=== PATIENT | female | born 1935 | race Caucasian/White ===

== ENCOUNTER 2022-10-12 21:01 | Inpatient (IN) | payer MEDICARE, MEDICAID ==
[~2022-10-12] VITALS: Ht 160 cm; Wt 54.5 kg
--- NOTE | 2022-10-12 21:03 | NUR ---
PT INTUBATED FOR RESP DISTRESS AT [address] GARCIA, ETT 7.5 @23 LIP, PLACEMENT CONFIRMED VIA CO2 COLOR CHANGE AND CXR. OG PLACED AND OUT 50ML OF YELLOWISH FLUID PLACEMENT CONFIRMED VIA CXR. PT REMIANS A FULL CODE.
[2022-10-12] MEDS ORDERED: FENTANYL-0.9 % NACL/PF 100 ML IV PRN ×2 (21:05→21:28)
[2022-10-12 21:18] VITALS: BP 142/77
[2022-10-12] MEDS ORDERED: midazolam 100mg in NS 100ml 100 ML IV PRN (21:26)
[2022-10-12 21:48] LABS: BASOPHILS # (AUTO) 0.1 X10'3 (0-0.2); BASOPHILS % (AUTO) 0.7 % (0-1); EOSINOPHILS % (AUTO) 0.2 % (0-6); HEMATOCRIT 32.1 % (35.0-45.0); HEMOGLOBIN 9.9 g/dl (12.0-16.0); LYMPHOCYTES # (AUTO) 1.5 X10'3 (1.1-4.8); LYMPHOCYTES % (AUTO) 9.5 % (21-51); MEAN CORPUSCULAR HEMOGLOBIN 27.6 PG (27.0-31.0); MEAN CORPUSCULAR HGB CONC 30.7 g/dL (33.0-36.5); MEAN CORPUSCULAR VOLUME 89.8 FL (78-98); MEAN PLATELET VOLUME 7.1 FL (7.4-10.4); MONOCYTES # (AUTO) 0.9 X10'3 (0-0.9); MONOCYTES % (AUTO) 5.6 % (2-12); NEUTROPHILS # (AUTO) 13.7 X10'3 (1.8-7.7); PLATELET COUNT 544 X10'3 (140-440); RED BLOOD COUNT 3.58 X10'6 (4.20-5.60); RED CELL DISTRIBUTION WIDTH 16.8 % (11.5-14.5); WHITE BLOOD COUNT 16.3 X10'3 (4.5-11.0)
[2022-10-12] MEDS ORDERED: midazolam 100mg in NS 100ml 100 ML IV ONE (21:50)
[2022-10-12] MEDS ORDERED: fentaNYL 50mcg/ml PF inj. 2,500 MCG in normal saline 250ml IV soln 200 ML IV ONE (21:50)
[2022-10-12 21:57] LABS: ABG BASE EXCESS 4.3 mmol/L (-2.0-2.0); ABG HCO3 29.8 mmol/L (22.0-26.0); ABG PCO2 (T) 46.9 mmHg (32.0-45.0); ABG PO2 (T) 66.8 mmHg (75.0-100.0); FCOHb 0.9 % (0.0-3.9); FMetHb 0.3 % (0.0-1.5); FO2Hb 92.9 % (94-97); PATIENT TEMPERATURE 35.8; PEEP 5 cm H2O; RESPIRATORY RATE 24 b/min; TIDAL VOLUME 325 mL; TOTAL HEMOGLOBIN 10.1 G/dl (12.0-16.0)
[2022-10-12 21:58] LABS: APTT 28 SECONDS (22-32)
[2022-10-12] MEDS ORDERED: CefTRIAXone/D5W-Rocephin 1gm 50 ML IV ONE (22:00)
[2022-10-12 22:09] LABS: ALANINE AMINOTRANSFERASE 30 U/L (12-78); ALBUMIN 2.5 G/DL (3.4-5.0); ALBUMIN/GLOBULIN RATIO 0.9 (1.1-1.5); ALKALINE PHOSPHATASE 62 IU/L (46-116); ANION GAP 5 (8-16); ASPARTATE AMINO TRANSFERASE 22 U/L (10-37); BILIRUBIN,TOTAL 0.3 MG/DL (0.1-1.0); BLOOD UREA NITROGEN 34 MG/DL (7-18); BUN/CREATININE RATIO 44.7 (6.6-38.0); CALCIUM 8.2 MG/DL (8.5-10.1); CHLORIDE 103 MMOL/L (99-107); CREATININE 0.76 MG/DL (0.40-0.90); GLUCOSE 150 MG/DL (70-104); LIPASE < 50 U/L (73-393); MAGNESIUM 1.4 MG/DL (1.5-2.4); POTASSIUM 4.6 MMOL/L (3.5-5.1); SODIUM 142 MMOL/L (135-145); TOTAL CARBON DIOXIDE 34.4 MMOL/L (24-32); TOTAL PROTEIN 5.2 G/DL (6.4-8.2); eGFR 72 ML/MIN
[2022-10-12] MEDS ORDERED: magnesium Cl slow-release 64mg tablet PO PRN (22:25)
[2022-10-12] MEDS ORDERED: potassium Cl 20 mEq SR tablet PO PRN ×2 (22:25)
[2022-10-12] MEDS ORDERED: sodium phosphate inj. 15 MMOL in dextrose 5%-water 250 ML IV PRN (22:25)
[2022-10-12] MEDS ORDERED: propofol 1000mg/100ml bottle 100 ML IV SCH (22:25)
[2022-10-12] MEDS ORDERED: ipratropium/albuterol 3ml nebule NEB PRN (22:25)
[2022-10-12] MEDS ORDERED: morphine 2 MG/ML inj. syringe IV PRN (22:25)
[2022-10-12] MEDS ORDERED: magnesium 4gm in 100ml NS 100 ML IV PRN (22:25)
[2022-10-12] MEDS ORDERED: sodium phosphate inj. 30 MMOL in dextrose 5%-water 250 ML IV PRN (22:25)
[2022-10-12] MEDS ORDERED: furosemide inj 1,000 MG in normal saline 250ml IV soln 150 ML IV SCH (22:25)
[2022-10-12] MEDS ORDERED: Neutra Phos packet PO PRN (22:25)
[2022-10-12] MEDS ORDERED: LIDOcaine 2% 10ml TOPICAL JELLY (Urojet) TP ONE (22:25)
[2022-10-12] MEDS ORDERED: magnesium 2GM in 50ml NS 50 ML IV PRN (22:25)
[2022-10-12] MEDS ORDERED: ondansetron/PF 4mg/2ml inj IV PRN (22:25)
[2022-10-12] MEDS ORDERED: acetaminophen 650mg rectal suppository RC PRN (22:25)
[2022-10-12] MEDS ORDERED: POTASSIUM BICARB 20meq eff tab 20 MEQ TABLET.EFF PO PRN ×2 (22:25)
[2022-10-12 22:47] LABS: CLARITY,URINE SLIGHTLY CLOUDY (Clear); COLOR,URINE YELLOW (Yellow); GLUCOSE, URINE NEGATIVE (Neg); KETONES,URINE NEGATIVE (Neg); LEUKOCYTE ESTERASE ,URINE NEGATIVE (Neg); NITRITES, URINE NEGATIVE (Neg); OCCULT BLOOD,URINE TRACE-INTACT (Neg); PROTEIN,URINE 100 mg/dl (Neg); UROBILINOGEN,URINE 0.2 E.U/dL (0.2-1.0)
[2022-10-12 22:50] LABS: UA COLLECTION TYPE FOLEY CATH
[2022-10-12 22:52] VITALS: BP 136/63
[2022-10-12 23:21] LABS: AMORPHOUS URATES 2+; SQUAMOUS EPITHELIAL CELL,UR MODERATE /LPF (FEW)
[2022-10-12 23:22] LABS: MUCUS STRANDS FEW /LPF (Neg); TRANSITIONAL EPI CELLS,URINE FEW /HPF
[2022-10-12 23:23] LABS: RBC,URINE 0-2 /HPF (0-2); WBC,URINE 0-4 /HPF (0-4)
[2022-10-12 23:24] LABS: BACTERIA,URINE NONE SEEN /HPF (Neg)
[2022-10-13] VITALS (26 sets, daily range): BP systolic 92–134; BP diastolic 36–75
--- NOTE | 2022-10-13 00:45 | NUR ---
Admission -Pt arrived from ED intubated and sedated, grewal catheter draining clear yellow urine, open pressure area on coccyx and bilateral reddened heels.
--- NOTE | 2022-10-13 01:30 | NUR ---
MD Communication -Called [facility] regarding pt is hypotensive, hypoxic, and has two peripheral IVs. Orders received.
[2022-10-13 01:41] LABS: ABG BASE EXCESS 4.6 mmol/L (-2.0-2.0); ABG HCO3 29.8 mmol/L (22.0-26.0); ABG OXYGEN SATURATION 85.2 % (94-97); ABG PCO2 (T) 48.8 mmHg (32.0-45.0); ABG PO2 (T) 50.4 mmHg (75.0-100.0); ALLEN'S TEST POSITIVE; FCOHb 0.5 % (0.0-3.9); FMetHb 0.3 % (0.0-1.5); FO2Hb 84.5 % (94-97); PATIENT TEMPERATURE 37.6; PEEP 8 cm H2O; RESPIRATORY RATE 24 b/min; TIDAL VOLUME 325 mL; TOTAL HEMOGLOBIN 9.5 G/dl (12.0-16.0)
[2022-10-13] MEDS ORDERED: albumin (human) 25% 100 ML IV solution IV ONE ×2 (01:50→03:50)
[2022-10-13] MEDS ORDERED: normal saline 500ml IV soln 500 ML IV PRN (01:55)
[2022-10-13] MEDS: cefepime 1GM/NS ADD-VANTAGE 100 ML IV SCH ×2 (02:01→07:48)
[2022-10-13] MEDS: vancomycin/NS 1 GM ADD-VANTAGE 250 ML IV SCH ×2 (02:02→03:12)
[2022-10-13 05:08] LABS: BASOPHILS % (AUTO) 0.3 % (0-1); EOSINOPHILS % (AUTO) 0 % (0-6); HEMATOCRIT 22.1 % (35.0-45.0); LYMPHOCYTES # (AUTO) 0.6 X10'3 (1.1-4.8); LYMPHOCYTES % (AUTO) 6.1 % (21-51); MEAN CORPUSCULAR HEMOGLOBIN 27.9 PG (27.0-31.0); MEAN CORPUSCULAR HGB CONC 31.1 g/dL (33.0-36.5); MEAN CORPUSCULAR VOLUME 89.5 FL (78-98); MEAN PLATELET VOLUME 7.1 FL (7.4-10.4); MONOCYTES # (AUTO) 0.6 X10'3 (0-0.9); MONOCYTES % (AUTO) 5.3 % (2-12); NEUTROPHILS # (AUTO) 9.3 X10'3 (1.8-7.7); NEUTROPHILS % (AUTO) 88.3 % (42-75); PLATELET COUNT 340 X10'3 (140-440); RED BLOOD COUNT 2.47 X10'6 (4.20-5.60); RED CELL DISTRIBUTION WIDTH 16.4 % (11.5-14.5); WHITE BLOOD COUNT 10.5 X10'3 (4.5-11.0)
[2022-10-13 05:14] LABS: HEMOGLOBIN 6.9 g/dl (12.0-16.0)
[2022-10-13 05:46] LABS: BASOPHILS % (AUTO) 0.2 % (0-1); EOSINOPHILS % (AUTO) 0 % (0-6); LYMPHOCYTES # (AUTO) 0.6 X10'3 (1.1-4.8); LYMPHOCYTES % (AUTO) 6.3 % (21-51); MEAN CORPUSCULAR HEMOGLOBIN 27.8 PG (27.0-31.0); MEAN CORPUSCULAR HGB CONC 31.8 g/dL (33.0-36.5); MEAN CORPUSCULAR VOLUME 87.4 FL (78-98); MEAN PLATELET VOLUME 6.8 FL (7.4-10.4); MONOCYTES # (AUTO) 0.5 X10'3 (0-0.9); MONOCYTES % (AUTO) 4.6 % (2-12); NEUTROPHILS # (AUTO) 8.9 X10'3 (1.8-7.7); NEUTROPHILS % (AUTO) 88.9 % (42-75); PLATELET COUNT 322 X10'3 (140-440); RED BLOOD COUNT 2.51 X10'6 (4.20-5.60); RED CELL DISTRIBUTION WIDTH 16.7 % (11.5-14.5)
[2022-10-13 05:55] LABS: ALBUMIN 3.5 G/DL (3.4-5.0); ANION GAP 10 (8-16); CHLORIDE 103 MMOL/L (99-107); CREATININE 0.79 MG/DL (0.40-0.90); GLUCOSE 100 MG/DL (70-104); MAGNESIUM 1.9 MG/DL (1.5-2.4); PHOSPHORUS 2.3 MG/DL (2.3-4.5); POTASSIUM 3.8 MMOL/L (3.5-5.1); SODIUM 142 MMOL/L (135-145); TOTAL CARBON DIOXIDE 28.7 MMOL/L (24-32); TRIGLYCERIDES 54 MG/DL (20-135); eGFR 69 ML/MIN
[2022-10-13 06:01] LABS: HEMATOCRIT 21.9 % (35.0-45.0)
--- NOTE | 2022-10-13 06:05 | NUR ---
Communication -Called [facility] regarding critical Hemogram of 7.0 and critical hematocrit of 21.9 after re-draw. Received orders for type and screen and 1 unit PRBC.
[2022-10-13 06:23] LABS: BLOOD UREA NITROGEN 34 MG/DL (7-18)
--- NOTE | 2022-10-13 06:30 | NUR ---
Patient in room CICU 2013. I have received report from SYLVIA Lopez and had the opportunity to ask questions and assume patient care.
--- NOTE | 2022-10-13 07:56 | NUR ---
Wound consult: Limited physician documentation at this time. Pt admitted w/ respiratory failure, currently intubated per EMR. Recommend initiation of nutrition support if expected prolonged intubation. Otherwise, advance to Regular diet s/p extubation. Pt noted w/ wound to coccyx per RN skin assessment, WOC pending. Will continue to monitor. Recs: 1. IF TF; Continuous TF using Vital AF at 55ml/hr goal to provide 1320ml volume, 1584kcals, 99g protein, 1071ml free water 2. IF TF; Additional water flush 100ml Q4H, monitor serum Na 3. IF TF; PALB Q / 4. Daily wts 5. Bowel care per rx 6. Advance to Regular diet upon extubation Addendum: 10/13/22 at [address] Amended: Links added.
[2022-10-13] MEDS ORDERED: K and/or MAG REPLACEMENT MC SCH (08:00)
[2022-10-13] MEDS ORDERED: enoxaparin 40mg/0.4ml syringe SUBCUT SCH (08:00)
[2022-10-13] MEDS ORDERED: famotidine/PF 10 mg/ml inj IV SCH (08:00)
[2022-10-13] MEDS ORDERED: CARSR60C PO (08:29)
[2022-10-13] MEDS ORDERED: DIGO125T PO (08:29)
[2022-10-13] MEDS ORDERED: CARB15DR2 OP (08:29)
--- NOTE | 2022-10-13 10:51 | NUR ---
Dr Zee spoke with pt's [id number] and patient care coordinator Mer[facility] over the phone. Discussed plan of care and need for proning d/t O2 requirements. Next of kin is kristin Ardon.
[2022-10-13] MEDS ORDERED: furosemide 40mg/4ml inj IV ONE (11:18)
--- NOTE | 2022-10-13 11:41 | NUR ---
Dr Zee called and cancelled Lasix order
[2022-10-13] MEDS ORDERED: rocuronium 10mg/ml inj IV ONE (14:00)
[2022-10-13] MEDS ORDERED: etomidate 2mg/ml inj. ONE (14:00)
[2022-10-13] MEDS ORDERED: DILT-35 PO (14:52)
[2022-10-13] MEDS ORDERED: LOSA25TA41 PO (14:53)
[2022-10-13] MEDS ORDERED: PARO20TA6 PO (14:53)
[2022-10-13] MEDS ORDERED: UMEC62.5 (14:53)
[2022-10-13] MEDS ORDERED: morphine 10mg/ml inj. IV PRN (15:57)
--- NOTE | 2022-10-13 16:27 | NUR ---
Pt extubated to comfort care.
--- NOTE | 2022-10-13 16:30 | NUR ---
Pt's granddaughter Reva at bedside. Discussed code status and family wishes fr escalation of care. Ravijennifer Ardon and LUCIA Madrid discussed comfort care measures with each other and Reva requested that Dr Zee speak with Mercy on the telephone again. A decision was made to not prone pt and to extubate to comfort care. Addendum: 10/13/22 at 1749 by Daniel Moran RN This occurred approximately 1530 hrs.
--- NOTE | 2022-10-13 18:01 | NUR ---
RN IS TO DOCUMENT YES TO ALL APPLICABLE AREAS Pronouncement of : 1. Time Physician Notified:Dr Zee 2. Date of :10/13/22 3. Time of : 1754 4. DNR/Withdraw life support documented:Y 5. Monitor strip has been placed on chart: Y 6. Assessment process is of one-minute duration and includes following criteria: a) Patient is unresponsive to all stimuli: Y b) Pupils fixed and non-reactive: Y c) Auscultation of precordium reveals absence of heart tones:Y d) Auscultation of lungs reveals absence of breath sounds: Y e) Absence of blood pressure / all vital signs:Y f) QRS complexes are not present on monitor / EKG strip:Y g) Pacer spikes without capture:N/A 4. Comments:Granddaughter Reva at bedside.
--- NOTE | 2022-10-13 18:05 | NUR ---
I have received report and assumed care of pt. Family at bedside.
--- NOTE | 2022-10-13 18:10 | NUR ---
3 rings and post acute bracelet sent home with Granddaughter
--- NOTE | 2022-10-13 18:34 | NUR ---
[facility] contacted, [facility] network contacted ref number [phone] contact Elinor pt may be released to [facility] and burial
--- NOTE | 2022-10-13 19:22 | NUR ---
[facility] picked up pt.
[2022-10-13] MEDS ORDERED: cefepime 1GM/NS ADD-VANTAGE 100 ML IV SCH (20:00)
[2022-10-14] MEDS ORDERED: mineral oil/petrolatum ophthal oint EACHEYE SCH (02:00)
[2022-10-14] MEDS ORDERED: vancomycin/NS 1 GM ADD-VANTAGE 250 ML IV SCH (02:00)
[2022-10-14] MEDS ORDERED: famotidine/PF 10 mg/ml inj IV SCH (08:00)
[2022-10-16] MEDS ORDERED: VANCOMYCIN LEVEL IV ONE (01:30)
== END 2022-10-13 19:27 | DRG 208 ==
LOC: ER 21:02 → ED HOLD 22:38 → CICU 2S 10-13 00:50
PROVIDERS: ADMIT Internal Medicine Critical Care Medicine; ATTEND Internal Medicine Critical Care Medicine
PROC: 5A1935Z Respiratory Ventilation, Less than 24 Consecutive Hours (ICD-10-PCS; principal; 2022-10-12)
PROC: 0BH17EZ Insertion of Endotracheal Airway into Trachea, Via Natural or Artificial Opening (ICD-10-PCS; 2022-10-12)
PROC: 30233N1 Transfusion of Nonautologous Red Blood Cells into Peripheral Vein, Percutaneous Approach (ICD-10-PCS; 2022-10-13)
DX: J18.9 Pneumonia, unspecified organism (principal); J80 Acute respiratory distress syndrome; E78.00 Pure hypercholesterolemia, unspecified; Z51.5 Encounter for palliative care; Y95 Nosocomial condition; I11.0 Hypertensive heart disease with heart failure; I48.91 Unspecified atrial fibrillation; I50.9 Heart failure, unspecified; R34 Anuria and oliguria; Z88.5 Allergy status to narcotic agent; Z88.2 Allergy status to sulfonamides; Z88.6 Allergy status to analgesic agent; Z91.041 Radiographic dye allergy status; Z79.899 Other long term (current) drug therapy
CPT/HCPCS: 36415; 36430; 36600; 71045; 80048; 80053; 81001; 82803; 82948; 83605; 83690; 83721; 83735; 83880; 84100; 84145; 84439; 84443; 84478; 84484; 85018; 85025; 85610; 85730; 86885; 86900; 86901; 86920; 87040; 87070; 93005; 93306; 94003; 94760; 96365; 96368; 99285; A6258; G0378; J0692; J0696; J1650; J2704; J3010; J3370; J3475; J3490; J7030; J7040; P9016; P9047